=== PATIENT | female | born 1945 | race Hispanic/Latino ===

== ENCOUNTER 2018-03-22 06:41 | Day surgery (SDC) | payer MEDICARE ==
[2018-03-10 12:57] VITALS: BMI 29.1
[2018-03-22 08:00] VITALS: TEMP 98.1
[2018-03-22] MEDS ORDERED: Phenylephrine 10 mg/ml Inj ONE (08:49)
[2018-03-22] MEDS ORDERED: Iohexol 350mgl/ml 50 ML ONE (08:49)
[2018-03-22] MEDS ORDERED: Iodixanol 320 MG/ML 200 ML BOTTLE IV ONE (08:49)
[2018-03-22] MEDS ORDERED: Nitroglycerin 50mg in D5W 0 MG/0 ML BOTTLE IV ONE (08:49)
[2018-03-22] MEDS ORDERED: Iodixanol 320 MG/ML 100 ML BOTTLE IV ONE (08:49)
[2018-03-22] MEDS ORDERED: Midazolam 2 MG/2 ML VIAL ONE (08:52)
[2018-03-22] MEDS ORDERED: Sodium Chloride 0.9% 1,000 ML IV SCH (09:45)
[2018-03-22 10:56] VITALS: RESP 18
--- NOTE | 2018-03-22 11:57 | CARDCATH ---
Copied To: Conor Talley MD Attending MD: Conor Talley MD PROCEDURE DATE: 03/22/2018 CARDIAC CATHETERIZATION REPORT PROCEDURES: 1. Right and left heart catheterization. 2. Selective left and right coronary angiography. 3. Right femoral arteriography. 4. Angio-Seal deployment. HISTORY: This is a 72-year-old woman with a history of hypertension and recent worsening exertional dyspnea, found to have evidence of severe aortic stenosis on echocardiography. Cardiac catheterization was advised. INDICATION: Exertional dyspnea, aortic stenosis. FINDINGS: HEMODYNAMICS: The right heart pressures were as follows. The RA pressure was 4. The RV pressure was 30/2. The PA pressure was 33/10 with the pulmonary capillary wedge pressure of 12. The cardiac output was 3.7 liters per minute with a cardiac index of 2 liters/minute per m2 by thermodilution method. Despite multiple catheters and wires, the aortic valve could not be crossed. The aortic mean gradient on her echocardiogram was 50 mmHg. Based upon this finding, the calculated aortic valve area would be 0.5 cm2. CORONARY ANATOMY: 1. The left mainstem was normal. 2. The left anterior descending artery had a long 50% stenosis in the mid portion of the vessel. Distal vessel was relatively free of disease as well as the side branches. 3. The left circumflex artery had no significant disease. 4. The right coronary artery was dominant and normal. Left ventriculogram was not performed due to inability to cross the aortic valve. RIGHT FEMORAL ARTERIOGRAPHY: Right femoral arteriogram was performed in the VILLASEÑOR projection. This revealed no evidence of significant disease and appropriate level of arterial puncture. The puncture site was then closed with deployment of an Angio-Seal device. CONCLUSIONS: 1. Severe aortic stenosis. 2. Moderate mid LAD stenosis. RECOMMENDATIONS: Given the above findings, consideration should be given to aortic valve replacement. If surgical valve replacement is performed, LAD bypass should likely be performed at the same time. If transcatheter aortic valve procedure is performed, a PCI of her LAD at a later date can be entertained. Continue risk factor control as advised. Conor Talley MD MUNDO
[2018-03-22 12:21] VITALS: BP 111/67; PULSE 70; O2SAT 93
== END 2018-03-22 14:15 | disposition home or self-care (01) ==
LOC: CATH 06:41
PROVIDERS: ATTEND Internal Medicine Cardiovascular Disease
DX: I25.10 Atherosclerotic heart disease of native coronary artery without angina pectoris (principal); I35.0 Nonrheumatic aortic (valve) stenosis; I10 Essential (primary) hypertension; R06.09 Other forms of dyspnea
CPT/HCPCS: 36415; 86850; 86900; 93460; 99152; C1760; C1769 ×3; C2629; J1644; J2250; J3010; J7030; Q9966